=== PATIENT | male | born 1980 | race Caucasian/White ===

== ENCOUNTER → 2022-07-03 | Outpatient (CLI) | payer OTHER ==
[~2022-07-03] MED LIST: HYDACE5 PO
[2022-07-06 01:07] LABS: CHLAMYDIA TRACHOMATIS, NAA Negative (Negative)
== END | disposition home or self-care (01) ==
LOC: LAB 19:00 → LAB SHORT 19:00
PROVIDERS: Physician Assistant
DX: N39.0 Urinary tract infection, site not specified (principal)
CPT/HCPCS: 87077; 87086; 87491; 87591

== ENCOUNTER 2023-03-31 06:42 | Emergency (ER) | payer OTHER ==
[~2023-03-31] VITALS: Ht 177.8 cm; Wt 72.6 kg
[2023-03-31] MEDS ORDERED: CEPH500 PO (09:21)
[2023-03-31] MEDS ORDERED: IBUP800 PO (09:21)
[2023-03-31 09:45] VITALS: BP 126/83
== END 2023-03-31 13:53 | disposition home or self-care (01) ==
LOC: ER 06:42
DX: S71.131A Puncture wound without foreign body, right thigh, initial encounter (principal); W34.00XA Accidental discharge from unspecified firearms or gun, initial encounter; F17.200 Nicotine dependence, unspecified, uncomplicated
CPT/HCPCS: 73560-RT; 93926; 96372; 99285-25; J1885